=== PATIENT | male | born 1985 | race Caucasian/White ===

== ENCOUNTER 2019-08-31 05:02 | Emergency (ER) | payer MEDICAID ==
[~2019-08-31] VITALS: Ht 167.6 cm; Wt 72.0 kg
[2019-08-31 06:08] LABS: BASOPHILS % 0.5 % (0.0-2.0); HEMATOCRIT. 31.6 % (42.0-52.0); HEMOGLOBIN. 10.8 g/dL (14.0-18.0); LYMPHOCYTES % 26.6 % (20.0-50.0); MEAN CORPUSCULAR HEMOGLOBIN 28.1 pg (28.0-32.0); MEAN CORPUSCULAR VOLUME 82.1 fL (80.0-94.0); MEAN PLATELET VOLUME 7.5 fl (7.4-10.4); MONOCYTES % 12.9 % (2.0-8.0); PLATELET 353 x1000/uL (130-400); RED BLOOD CELL COUNT 3.85 mill/uL (4.7-6.1); RED CELL DISTRIBUTION WIDTH 14.5 % (11.6-14.6)
[2019-08-31 06:12] LABS: CHLORIDE 107 mEq/L (98-107)
[2019-08-31 06:16] LABS: ETHANOL BLOOD < 10 mg/dL
[2019-08-31] MEDS ORDERED: OLANZAPINE 10 MG/VIAL IM ONE (06:30)
[2019-08-31] MEDS ORDERED: LORAZEPAM 2MG/ML CPJ IM ONE (06:30)
[2019-08-31 09:24] LABS: CLARITY URINE CLEAR (CLEAR); COLOR URINE YELLOW (YELLOW); KETONES URINE NEGATIVE (NEGATIVE); LEUKOCYTE ESTERASE URINE NEGATIVE (NEGATIVE); NITRITE URINE NEGATIVE (NEGATIVE); OCCULT BLOOD URINE NEGATIVE (NEGATIVE); PH URINE 5.5 (4.5-8.0); PROTEIN URINE NEGATIVE (NEGATIVE); SPECIFIC GRAVITY URINE 1.018 (1.005-1.030); UROBILINOGEN URINE 0.2 E.U./dL (0.2-1.0)
[2019-08-31 10:52] LABS: *AMPHETAMINES SCREEN URINE PRESUMTIVE POSITIVE (NEGATIVE); *BARBITURATES SCREEN URINE NEGATIVE (NEGATIVE); *BENZODIAZEPINES SCREEN URINE NEGATIVE (NEGATIVE)
[2019-08-31 10:53] LABS: *COCAINE SCREEN URINE NEGATIVE (NEGATIVE); CANNABINOID URINE SCREEN NEGATIVE (NEGATIVE); METHADONE URINE SCREEN NEGATIVE (NEGATIVE); OPIATES URINE SCREEN NEGATIVE (NEGATIVE); PHENCYCLIDINE URINE SCREEN NEGATIVE (NEGATIVE)
[2019-09-01] MEDS ORDERED: LORAZEPAM 1MG TABLET PO ONE (13:00)
[2019-09-02] MEDS ORDERED: LORAZEPAM 1MG TABLET PO ONE (10:00)
[2019-09-03] MEDS ORDERED: LORAZEPAM 1MG TABLET PO ONE ×2 (09:15→10:30)
[2019-09-03] MEDS: OLANZAPINE 5MG TABLET PO SCH ×2 (09:30→09:36)
[2019-09-03] MEDS ORDERED: LORAZEPAM 2MG/ML CPJ IM STA (10:22)
[2019-09-03] MEDS ORDERED: LORAZEPAM 2MG/ML CPJ IM ONE (10:30)
[2019-09-03] MEDS ORDERED: OLANZAPINE 10 MG/VIAL IM ONE (10:30)
[2019-09-03 19:02] VITALS: BP 99/61
== END 2019-09-03 19:00 ==
LOC: EDBD 05:59 → ER 05:59
DX: R45.851 Suicidal ideations (principal); F15.129 Other stimulant abuse with intoxication, unspecified; F39 Unspecified mood [affective] disorder; F23 Brief psychotic disorder; F17.200 Nicotine dependence, unspecified, uncomplicated
CPT/HCPCS: 36415; 80048; 80076; 80305; 80307; 80320; 80329; 81003; 85025; 96372; 99285; J2060; J3490; G0480